=== PATIENT | female | born 1975 | race Caucasian/White ===

== ENCOUNTER 2019-08-04 09:48 | Outpatient (CLI) | payer OTHER ==
--- NOTE | 2019-08-04 10:44 | MMO ---
Right Breast MAMMO Unilat Diag DDI RT+DARLEEN. CLINICAL HISTORY: Patient is 43 years old and is seen for diagnostic exam, and pain in the right breast. The patient has the following family history of breast cancer: maternal aunt. The patient has no personal history of cancer. The patient has a history of bilateral Excisional Biopsy at age 14 - benign, bilateral Implants in 2001 and right Excisional Biopsy - benign. VIEWS: The views performed were: bilateral Implant displaced with tomosynthesis; right craniocaudal with tomosynthesis; right mediolateral with tomosynthesis; right exaggerated craniocaudal with tomosynthesis; and right mediolateral oblique with tomosynthesis. FILMS COMPARED: The present examination has been compared to prior imaging studies performed at [facility] on 12/18/2018, and at [facility] on 08/04/2019. This study has been interpreted with the assistance of computer-aided detection. MAMMOGRAM FINDINGS: The breast is heterogeneously dense, which could obscure a lesion on mammography. Corresponding to the palpable finding right axilla is an area of skin and subcutaneous fat infection with phlegmonous changes. No drainable fluid collection. There are no suspicious masses, suspicious calcifications, or new areas of architectural distortion. IMPRESSION: THERE IS NO MAMMOGRAPHIC EVIDENCE OF MALIGNANCY. A ROUTINE FOLLOW-UP MAMMOGRAM IN 1 YEAR IS RECOMMENDED. THE RESULTS OF THIS EXAM WERE SENT TO THE PATIENT. ACR BI-RADS Category 2 - Benign finding MAMMOGRAPHY NOTE: 1. A negative mammogram report should not delay a biopsy if a dominant of clinically suspicious mass is present. 2. Approximately 10% to 15% of breast cancers are not detected by mammography. 3. Adenosis and dense breasts may obscure an underlying neoplasm. Reported by: Sincere MADISON Electonically Signed: [id number]
--- NOTE | 2019-08-05 07:54 | MMO ---
Right US Breast Limited Rt. CLINICAL HISTORY: Patient is 43 years old and is seen for . The patient has a history of bilateral Excisional Biopsy at age 14 - benign, bilateral Implants in 2000 and right Excisional Biopsy - benign. VIEWS: The views performed were: . FILMS COMPARED: The present examination has been compared to prior imaging studies performed at [facility] [place] on 12/18/2018, and at [facility] on 08/04/2019. This study has been interpreted with the assistance of computer-aided detection. RIGHT BREAST ULTRASOUND FINDINGS: High-resolution real-time ultrasound scanning was performed. Corresponding to the palpable finding right axilla is an area of skin and subcutaneous fat infection with phlegmonous changes. No drainable fluid collection. Same is true of the upper arm. On ultrasound, no suspicious findings are identified. IMPRESSION: THERE IS NO MAMMOGRAPHIC EVIDENCE OF MALIGNANCY. A ROUTINE FOLLOW-UP MAMMOGRAM IN 1 YEAR IS RECOMMENDED. THE RESULTS OF THIS EXAM WERE SENT TO THE PATIENT. ACR BI-RADS Category 2 - Benign finding MAMMOGRAPHY NOTE: 1. A negative mammogram report should not delay a biopsy if a dominant of clinically suspicious mass is present. 2. Approximately 10% to 15% of breast cancers are not detected by mammography. 3. Adenosis and dense breasts may obscure an underlying neoplasm. Reported by: Sincere MADISON Electonically Signed: [id number]
== END 2019-08-04 09:49 | disposition home or self-care (01) ==
LOC: BICMAMMO 09:48
PROVIDERS: ATTEND Family Medicine
DX: N63.10 Unspecified lump in the right breast, unspecified quadrant (principal)
CPT/HCPCS: G0279

== ENCOUNTER 2022-03-21 13:05 | Outpatient (CLI) | payer BC | END 2022-03-21 13:06 | disposition home or self-care (01) | LOC: BICRAD 13:05 | PROVIDERS: ATTEND Family Medicine | DX: M54.9 Dorsalgia, unspecified (principal) | CPT/HCPCS: 72072 ==